=== PATIENT | male | born 1955 | race Caucasian/White ===

== ENCOUNTER 2020-12-13 13:30 | Inpatient (IN) | payer OTHER ==
[~2020-12-13] VITALS: Ht 182.9 cm; Wt 74.8 kg
[2020-12-13 14:58] LABS: HEMOGLOBIN 9.7 gm/dl (14.0-17.5); RED BLOOD COUNT 2.96 M/UL (4.20-5.50); WHITE BLOOD COUNT 17.4 K/UL (4.5-11.0)
[2020-12-13 15:37] LABS: BUN/CREATININE RATIO 24 (0-10)
[2020-12-13] MEDS ORDERED: BACLOFEN20 MG PO (18:28)
[2020-12-13] MEDS ORDERED: FERROUS SULFAT324 MG PO (18:28)
[2020-12-13] MEDS ORDERED: ROBAXIN 750 MG750 MG PO (18:29)
[2020-12-13] MEDS ORDERED: PLAVIX75 MG PO (18:29)
[2020-12-13] MEDS ORDERED: OMEPRAZOLE40 MG PO (18:30)
[2020-12-13] MEDS ORDERED: ASPIRIN EC81 MG PO (18:30)
[2020-12-13] MEDS ORDERED: CLARITIN 10MG T10 MG PO (18:30)
[2020-12-13] MEDS ORDERED: CITALOPRAM HBR40 MG PO (18:31)
[2020-12-13] MEDS ORDERED: LIPITOR40 MG PO (18:31)
[2020-12-13] MEDS ORDERED: VOLTAREN EC 5050 MG PO (18:31)
[2020-12-13] MEDS ORDERED: PEPCID40 MG PO (18:32)
[2020-12-13] MEDS ORDERED: VITAMIN D21250 MCG PO (18:32)
[2020-12-13] MEDS ORDERED: WELLBUTRIN XL150 MG PO (18:33)
[2020-12-13] MEDS ORDERED: FLOMAX 0.4 MG0.4 MG PO (18:33)
[2020-12-13 20:15] LABS: BUN/CREATININE RATIO 22 (0-10)
[2020-12-13 23:41] LABS: BUN/CREATININE RATIO 20 (0-10)
[2020-12-14] MEDS ORDERED: BUSPIRONE HCL30 MG PO (00:25)
[2020-12-14 03:36] LABS: RED BLOOD COUNT 2.79 M/UL (4.20-5.50)
[2020-12-14 03:42] LABS: WHITE BLOOD COUNT 12.1 K/UL (4.5-11.0)
[2020-12-14 03:57] LABS: BUN/CREATININE RATIO 19 (0-10)
[2020-12-14 07:23] LABS: BUN/CREATININE RATIO 15 (0-10)
[2020-12-14 09:41] LABS: BUN/CREATININE RATIO 14 (0-10)
[2020-12-14 11:19] LABS: BUN/CREATININE RATIO 13 (0-10)
[2020-12-14 13:35] LABS: BUN/CREATININE RATIO 9 (0-10)
[2020-12-14 17:19] LABS: BUN/CREATININE RATIO 9 (0-10)
[2020-12-14 21:50] LABS: BUN/CREATININE RATIO 8 (0-10)
[2020-12-15 01:15] LABS: HEMOGLOBIN 8.9 gm/dl (14.0-17.5); RED BLOOD COUNT 2.76 M/UL (4.20-5.50); WHITE BLOOD COUNT 10.1 K/UL (4.5-11.0)
[2020-12-15 01:36] LABS: BUN/CREATININE RATIO 8 (0-10)
[2020-12-15 05:05] LABS: BUN/CREATININE RATIO 9 (0-10)
[2020-12-15 09:20] LABS: BUN/CREATININE RATIO 7 (0-10)
[2020-12-15 13:45] LABS: BUN/CREATININE RATIO 8 (0-10)
[2020-12-16 04:50] LABS: BUN/CREATININE RATIO 12 (0-10)
[2020-12-17 02:51] LABS: HEMOGLOBIN 9.5 gm/dl (14.0-17.5); RED BLOOD COUNT 2.96 M/UL (4.20-5.50); WHITE BLOOD COUNT 8.1 K/UL (4.5-11.0)
[2020-12-17 03:35] LABS: BUN/CREATININE RATIO 16 (0-10)
[2020-12-18 02:45] LABS: HEMOGLOBIN 8.3 gm/dl (14.0-17.5); WHITE BLOOD COUNT 6.8 K/UL (4.5-11.0)
[2020-12-18 02:50] LABS: RED BLOOD COUNT 2.57 M/UL (4.20-5.50)
[2020-12-18 03:25] LABS: BUN/CREATININE RATIO 24 (0-10)
--- NOTE | 2020-12-18 03:45 | NUR ---
PT'S REPORTED THAT PATIENT HAD BOWEL MOVEMENT IN BEDPAIN. UPON INSPECTION, BOWEL MOVEMENT APPEARED LOOSE AND VERY DARK WITH WHAT APPEARED TO BE CLOTS. BP BLOOD PRESSURE HAS DROPPED FROM 123/60 TO 83/54. PHYSICIAN HAS BEEN NOTIFIED, ORDERS RECEIVED AND ARE BEING IMPLEMENTED CURRENTLY. PATIENT APPEARS PALE AND DIAPHORETIC AT THIS TIME, LABS HAVE BEEN DRAWN, BOLUS HAS BEEN INITIATED, TYPE AND CROSS IS RUNNING. PT DENIES ANY PAIN OR DISCOMFORT AT THIS TIME.
[2020-12-18 03:52] LABS: HEMOGLOBIN 7.7 gm/dl (14.0-17.5)
[2020-12-18 15:10] LABS: HEMOGLOBIN 7.6 gm/dl (14.0-17.5); RED BLOOD COUNT 2.43 M/UL (4.20-5.50); WHITE BLOOD COUNT 8.4 K/UL (4.5-11.0)
[2020-12-19 01:21] LABS: HEMOGLOBIN 8.5 gm/dl (14.0-17.5); WHITE BLOOD COUNT 9.8 K/UL (4.5-11.0)
[2020-12-19 01:37] LABS: BUN/CREATININE RATIO 33 (0-10)
[2020-12-19 01:41] LABS: RED BLOOD COUNT 3.02 M/UL (4.20-5.50)
[2020-12-20 03:19] LABS: RED BLOOD COUNT 2.39 M/UL (4.20-5.50); WHITE BLOOD COUNT 10.2 K/UL (4.5-11.0)
[2020-12-20 03:21] LABS: HEMOGLOBIN 6.6 gm/dl (14.0-17.5)
[2020-12-20 03:55] LABS: BUN/CREATININE RATIO 11 (0-10)
[2020-12-20 17:24] LABS: HEMOGLOBIN 8.2 gm/dl (14.0-17.5)
[2020-12-21 03:42] LABS: HEMOGLOBIN 8.2 gm/dl (14.0-17.5); RED BLOOD COUNT 2.89 M/UL (4.20-5.50); WHITE BLOOD COUNT 9.8 K/UL (4.5-11.0)
[2020-12-21 04:00] LABS: BUN/CREATININE RATIO 12 (0-10)
[2020-12-21 21:21] LABS: HEMOGLOBIN 9.2 gm/dl (14.0-17.5); RED BLOOD COUNT 3.17 M/UL (4.20-5.50); WHITE BLOOD COUNT 7.6 K/UL (4.5-11.0)
[2020-12-21 21:36] LABS: BUN/CREATININE RATIO 10 (0-10)
[2020-12-21 22:52] LABS: BORDETELLA PARAPERTUSSIS Not Detected (Not Detectd); BORDETELLA PERTUSSIS Not Detected (Not Detectd); CHLAMYDIA PNEUMONIAE Not Detected (Not Detectd); CORONAVIRUS HKU1 Not Detected (Not Detectd); CORONAVIRUS NL63 Not Detected (Not Detectd); CORONAVIRUS OC43 Not Detected (Not Detectd); CORONOAVIRUS 229E Not Detected (Not Detectd); HUMAN METAPNEUMOVIRUS Not Detected (Not Detectd); HUMAN RHINOVIRUS/ENTEROVIRUS Not Detected (Not Detectd); INFLUENZA A Not Detected (Not Detectd); INFLUENZA B Not Detected (Not Detectd); MYCOPLASMA PNEUMONIAE Not Detected (Not Detectd); PARAINFLUENZA VIRUS 1 Not Detected (Not Detectd); PARAINFLUENZA VIRUS 2 Not Detected (Not Detectd); PARAINFLUENZA VIRUS 3 Not Detected (Not Detectd); PARAINFLUENZA VIRUS 4 Not Detected (Not Detectd); RESPIRATORY SYNCYTIAL VIRUS Not Detected (Not Detectd)
[2020-12-22 00:20] LABS: SARS-CoV-2 NOT DETECTED (Not Detectd)
[2020-12-22 02:36] LABS: RED BLOOD COUNT 3.12 M/UL (4.20-5.50); WHITE BLOOD COUNT 9.2 K/UL (4.5-11.0)
[2020-12-22 03:47] LABS: BUN/CREATININE RATIO 11 (0-10)
[2020-12-23 04:30] LABS: HEMOGLOBIN 8.8 gm/dl (14.0-17.5); RED BLOOD COUNT 3.12 M/UL (4.20-5.50); WHITE BLOOD COUNT 9.3 K/UL (4.5-11.0)
[2020-12-23 05:13] LABS: BUN/CREATININE RATIO 14 (0-10)
--- NOTE | 2020-12-23 13:44 | NUR ---
12/23/20 1340 INCENTIVE SPIROMETER GIVEN AND PATIENT AND INSTRUCTED ON HOW TO USE
--- NOTE | 2020-12-23 15:48 | NUR ---
12/23/20 1545 OXYGEN SATURATION DROPPED TO 88% O2 REPLACED
[2020-12-24 09:43] LABS: BUN/CREATININE RATIO 12 (0-10)
[2020-12-24] MEDS ORDERED: SYMBICORT 160-1 INHA INH (15:30)
[2020-12-24] MEDS ORDERED: VITAMIN B-1100 M1 PO (15:30)
[2020-12-24] MEDS ORDERED: SPIRIVA HANDIH18 MCG INH (15:30)
[2020-12-24] MEDS ORDERED: IPRAT-ALBUT 0.5-3 ML NEB (15:30)
[2020-12-24] MEDS ORDERED: SODIUM CHLORIDE1 G1 PO (15:30)
[2020-12-24] MEDS ORDERED: TAB-A-VITE TA400 MC1 PO (15:30)
[2020-12-24] MEDS ORDERED: AUGMENTIN 875-1 EACH PO (15:30)
[2020-12-24] MEDS ORDERED: NICOTINE PATCH1 EAC2 TD (15:30)
[2020-12-24] MEDS ORDERED: ZOFRAN 4 MG TAB4 MG PO (15:44)
[2020-12-24] MEDS ORDERED: PROTONIX 40 MG40 M1 PO (15:55)
[2020-12-25 07:09] LABS: HBSAG SCREEN Negative (Negative); HEP A AB, IGM Negative (Negative); HEP B CORE AB, IGM Negative (Negative); HEP C VIRUS AB <0.1 (0.0-0.9)
== END 2020-12-24 16:56 | disposition home or self-care (01) | DRG 177 ==
LOC: ER1 13:30 → CDU 16:45 → PROG CARE 16:45 → CCU 12-14 00:03 → PROG CARE 12-14 19:22 → MED SURG 4 12-22 13:34
PROVIDERS: Internal Medicine; Internal Medicine Gastroenterology; Internal Medicine Nephrology; Physician Assistant; ADMIT Internal Medicine
PROC: 30233N1 Transfusion of Nonautologous Red Blood Cells into Peripheral Vein, Percutaneous Approach (ICD-10-PCS; 2020-12-18)
PROC: 0DJ08ZZ Inspection of Upper Intestinal Tract, Via Natural or Artificial Opening Endoscopic (ICD-10-PCS; principal; 2020-12-19 08:00)
PROC: 0DBL8ZX Excision of Transverse Colon, Via Natural or Artificial Opening Endoscopic, Diagnostic (ICD-10-PCS; 2020-12-20)
DX: J69.0 Pneumonitis due to inhalation of food and vomit (principal); J96.01 Acute respiratory failure with hypoxia; K55.031 Focal (segmental) acute (reversible) ischemia of large intestine; G93.41 Metabolic encephalopathy; J44.1 Chronic obstructive pulmonary disease with (acute) exacerbation; E87.1 Hypo-osmolality and hyponatremia; K25.3 Acute gastric ulcer without hemorrhage or perforation; D62 Acute posthemorrhagic anemia; E86.0 Dehydration; I10 Essential (primary) hypertension; K64.8 Other hemorrhoids; F17.210 Nicotine dependence, cigarettes, uncomplicated; F10.10 Alcohol abuse, uncomplicated; K70.9 Alcoholic liver disease, unspecified; E78.00 Pure hypercholesterolemia, unspecified; R59.1 Generalized enlarged lymph nodes; E87.6 Hypokalemia; N40.0 Benign prostatic hyperplasia without lower urinary tract symptoms; Z20.822 Contact with and (suspected) exposure to COVID-19; Z89.611 Acquired absence of right leg above knee; Z79.82 Long term (current) use of aspirin
CPT/HCPCS: 0240U; 36415; 36430; 36600; 70450; 71045; 71250; 80048; 80053; 80074; 80076; 81001; 82140; 82436; 82533; 82550; 82553; 82607; 82728; 82746; 82803; 83540; 83550; 83605; 83735; 83874; 83880; 83935; 84132; 84133; 84295; 84300; 84443; 84484; 85014; 85018; 85025; 85027; 85610; 86850; 86900; 86901; 86920; 87040; 87633; 88342; 93005; 94640; 94664; 94760; 99285; C9113; G0480; J0456; J0696; J1200; J1940; J2250; J2543; J2920; J3010; J3475; J3480; J7030; J7040; J7070; J7120; P9016; U0002

== ENCOUNTER 2021-01-18 13:50 | Inpatient (IN) | payer OTHER ==
[~2021-01-18] VITALS: Ht 182.9 cm; Wt 68.0 kg
[~2021-01-18 13:50] MED LIST: ASPIRIN EC81 MG PO; AUGMENTIN 875-1 EACH PO; BACLOFEN20 MG PO; BUSPIRONE HCL30 MG PO; CITALOPRAM HBR40 MG PO; CLARITIN 10MG T10 MG PO; FERROUS SULFAT324 MG PO; FLOMAX 0.4 MG0.4 MG PO; IPRAT-ALBUT 0.5-3 ML NEB; LIPITOR40 MG PO; NICOTINE PATCH1 EAC2 TD; OMEPRAZOLE40 MG PO; PEPCID40 MG PO; PLAVIX75 MG PO; PROTONIX 40 MG40 M1 PO; ROBAXIN 750 MG750 MG PO; SODIUM CHLORIDE1 G1 PO; SPIRIVA HANDIH18 MCG INH; SYMBICORT 160-1 INHA INH; TAB-A-VITE TA400 MC1 PO; VITAMIN B-1100 M1 PO; VITAMIN D21250 MCG PO; VOLTAREN EC 5050 MG PO; WELLBUTRIN XL150 MG PO; ZOFRAN 4 MG TAB4 MG PO
[2021-01-18 16:49] LABS: HEMOGLOBIN 12.5 gm/dl (14.0-17.5); RED BLOOD COUNT 4.28 M/UL (4.20-5.50); WHITE BLOOD COUNT 11.4 K/UL (4.5-11.0)
[2021-01-18 17:28] LABS: BUN/CREATININE RATIO 17 (0-10)
[2021-01-19 04:38] LABS: HEMOGLOBIN 10.9 gm/dl (14.0-17.5); WHITE BLOOD COUNT 9.5 K/UL (4.5-11.0)
[2021-01-19 04:42] LABS: RED BLOOD COUNT 3.69 M/UL (4.20-5.50)
[2021-01-19 05:02] LABS: BUN/CREATININE RATIO 12 (0-10)
[2021-01-19] MEDS ORDERED: IPRAT-ALBUT 0.5-3 ML INH (10:46)
[2021-01-19] MEDS ORDERED: ELAVIL 50 MG TA50 MG PO (18:29)
[2021-01-19] MEDS ORDERED: NORVASC10 MG PO (18:30)
[2021-01-19] MEDS ORDERED: TOPROL XL50 MG PO (18:33)
[2021-01-20 04:25] LABS: HEMOGLOBIN 10.6 gm/dl (14.0-17.5); RED BLOOD COUNT 3.66 M/UL (4.20-5.50); WHITE BLOOD COUNT 8.2 K/UL (4.5-11.0)
[2021-01-20 04:45] LABS: BUN/CREATININE RATIO 10 (0-10)
[2021-01-21 05:22] LABS: BUN/CREATININE RATIO 11 (0-10)
--- NOTE | 2021-01-21 14:32 | NUR ---
PATIENT HAS MOMENTS OF LUCIDITY AND IS APPROPRIATE CONVERSATIONALLY, HE JUST GETS CONFUSED ON TIME AND PLACE. HAS REMAINED AT BEDSIDE ALL DAY. WILL CONTINUE TO MONITOR PATIENT FOR ANY CHANGES.
[2021-01-22 04:51] LABS: HEMOGLOBIN 10.7 gm/dl (14.0-17.5); RED BLOOD COUNT 3.72 M/UL (4.20-5.50)
[2021-01-22 04:55] LABS: WHITE BLOOD COUNT 5.2 K/UL (4.5-11.0)
[2021-01-22 05:12] LABS: BUN/CREATININE RATIO 16 (0-10)
[2021-01-23 04:51] LABS: BUN/CREATININE RATIO 18 (0-10)
[2021-01-23] MEDS ORDERED: THERAGRAN M TAB1 EA PO (08:31)
[2021-01-23] MEDS ORDERED: BACLOFEN10 MG PO (08:31)
[2021-01-23] MEDS ORDERED: BUSPAR 10MG10 MG PO (08:31)
--- NOTE | 2021-01-23 14:33 | NUR ---
REPORT CALLED TO ERNA AT [facility].
== END 2021-01-23 15:24 | disposition home health service (06) | DRG 177 ==
LOC: ER1 13:50 → CDU 20:43 → M/S 20:43
PROVIDERS: Emergency Medicine; Internal Medicine; Internal Medicine Infectious Disease; ADMIT Internal Medicine
DX: J69.0 Pneumonitis due to inhalation of food and vomit (principal); G92 Toxic encephalopathy; J44.0 Chronic obstructive pulmonary disease with (acute) lower respiratory infection; G93.49 Other encephalopathy; J96.11 Chronic respiratory failure with hypoxia; E87.1 Hypo-osmolality and hyponatremia; Z20.822 Contact with and (suspected) exposure to COVID-19; M10.9 Gout, unspecified; R53.81 Other malaise; E86.0 Dehydration; E87.6 Hypokalemia; I73.9 Peripheral vascular disease, unspecified; F17.210 Nicotine dependence, cigarettes, uncomplicated; I10 Essential (primary) hypertension; F10.10 Alcohol abuse, uncomplicated; Z89.611 Acquired absence of right leg above knee; Z79.82 Long term (current) use of aspirin; Z89.519 Acquired absence of unspecified leg below knee
CPT/HCPCS: 36415; 71045; 73030; 73130; 80048; 80053; 80202; 81001; 82140; 82550; 82553; 83605; 83690; 83735; 84132; 84484; 85025; 86140; 87040; 94640; 94664; 94760; 96365; 97162; 99285; G0378; J1100; J1644; J1885; J2543; J3370; J3475; J7030; J7070; Q9967; U0002